=== PATIENT | female | born 1975 | race Caucasian/White ===

== ENCOUNTER 2017-11-21 12:13 | Inpatient (IN) | payer SELFPAY ==
--- NOTE | 2017-11-21 12:36 | ED Physician Chart ---
ED Chief Complaint/HPI - Patient Information Date Seen:: 11/21/17 Time Seen:: 12:29 Chief Complaint:: Right flank pain History of Present Illness:: 42 yo female tripped and had a ground level fall 10 days ago. She had left periorbital ecchymosis gradually healing and a healed laceration on the chin. Last night, the patient had a sudden onset of right mid back and flank pain with nausea, no vomiting. No urinary burning sensation or frequency. She called 911 and was found to have BP 85/47, HR 111. NS 1L bolus was given. Patient was brought to ER and the pain 05/06. BP 108/74, HR 102. Allergies:: Allergies Allergy/AdvReac Type Severity Reaction Status Date / Time No Known Allergies Allergy Verified 11/21/17 12:26 ED Review of Systems - Review of Systems General/Constitutional: No fever, Chills Skin: Bruising Head: No headache Eyes: No pain ENT: No nasal drainage Neck: No neck pain Cardio Vascular: No chest pain Pulmonary: SOB GI: Pain G/U: No dysuria Neurological: No focal symptoms ED Past Medical History - Past Medical History Past Medical History: No significant medical hx Social History: Non Smoker, Alcohol, No Drug Use Surgical History: (x 1), other (gastric bypass) Family Medical History - Family Member Mother History Unknown: Yes ED Physical Exam - Physical Examination General/Constitutional: Awake Eyes: PERRL Other Skin comments:: ecchymosis left periorbital area Neck: No nuchal rigidity Respiratory: Clear to Auscultation Cardio Vascular: RRR, No murmur, gallop, rubs, NL S1 S2 Other GI comments:: RLQ and right flank tenderness Other comments:: Right CVA percussion tenderness Extremities: normal strength in all extremities Neuro/Psych: No focal deficits ED Labs/Radiology/EKG Results - Radiology Results Results: CT abdomen/pelvis: ascending and proximal transverse colon wall thickening, suggesting colitis ED Assessment - Assessment General Assessment: Colitis Leukocytosis Hyponatremia Normocytic anemia Abnormal LFT Elevated lipase Assessment/Comments:: CBC, CMP, UA CT abdomen Morphine Rocephin Flagyl NS 1L IV bolus Admit to med surg for further evaluation and management ED Septic Shock - . Is Septic Shock (SBP<90, OR Lactate>4 mmol\L) present?: No ED Reassessment (Disposition) - Reassessment Reassessment Condition:: Improved - Patient Disposition Discharge/Transfer:: Acute Care w/in this hosp Admitting Medical Physician:: Nasim Bunn ED Discharge Plan - Patient Disposition Admit/Discharge/Transfer: Acute Care w/in this hosp Condition at Disposition: Stable
[2017-11-21] MEDS ORDERED: Morphine Sulfate 2 mg/mL 1mL Syr IV STA ×2 (12:44→15:58)
[2017-11-21] MEDS ORDERED: Morphine Sulfate 4 mg/mL 1mL Syr ONE ×2 (12:47→16:13)
[2017-11-21 13:02] LABS: RED CELL DISTRIBUTION WIDTH 17.2 % (11.5-20.0)
[2017-11-21 13:05] LABS: HEMATOCRIT 30.4 % (41.0-60); HEMOGLOBIN 10.5 gm/dL (12-16); MEAN CELL VOLUME 99.8 fl (81-100); MEAN CORPUSCULAR HEMOGLOBIN 34.4 pg (27.0-31.0); MEAN CORPUSCULAR HGB CONC 34.5 pg (28.0-36.0); MEAN PLATELET VOLUME 7.2 fl; PLATELET COUNT 200 Th/cmm (150-400); RED BLOOD COUNT 3.04 Mil/cmm (3.80-5.10)
[2017-11-21 13:08] LABS: MANUAL DIFF REQUIRED? YES
[2017-11-21 13:19] LABS: BAND NEUTROPHILE 4 % (0-10); INR 0.99 (0.5-1.4); LYMPHOCYTE 10 % (20-50); MONOCYTE 3 % (2-10); NEUTROPHILS 83 % (40-80); PROTHROMBIN TIME (TEST) 10.3 SECONDS (9.5-11.5); TOTAL CELLS COUNTED 100
[2017-11-21 13:20] LABS: URINE MICROSCOPIC INDICATED? YES; URINE SOURCE RANDOM
[2017-11-21 13:21] LABS: ALB/GLOB RATIO 1.5 (1.0-1.8); ALBUMIN 4.1 gm/dL (3.7-5.3); ALKALINE PHOSPHATASE 119 U/L (34-104); ANION GAP 33.1 (7.0-16.0); BILIRUBIN,TOTAL 1.5 mg/dL (0.3-1.0); BUN - UREA NITROGEN 12 mg/dL (7-25); CALCIUM SERUM 7.8 mg/dL (8.6-10.3); CHLORIDE 90 mEq/L (98-107); CREATININE - SERUM 0.8 mg/dL (0.6-1.2); GFR AFRICAN-AMERICAN > 60.0 ml/min (>90); GFR NON AFRICAN-AMERICAN > 60.0 ml/min; GLUCOSE 123 mg/dL (70-105); LIPASE 197 U/L (11-82); POTASSIUM SERUM 4.5 mEq/L (3.5-5.1); SGOT 36 U/L (13-39); SGPT/ALT 16 U/L (7-52); SODIUM SERUM 122 mEq/L (136-145); TOTAL PROTEIN,SERUM 6.9 gm/dL (6.0-8.3)
[2017-11-21 13:22] LABS: URINE BILIRUBIN NEGATIVE (NEGATIVE); URINE BLOOD SMALL (NEGATIVE); URINE GLUCOSE (UA) NEGATIVE (NEGATIVE); URINE KETONE >=80 mg/dL (NEGATIVE); URINE LEUKOCYTE ESTERASE NEGATIVE (NEGATIVE); URINE NITRATE NEGATIVE (NEGATIVE); URINE PH 5.5 (4.6 - 8.0); URINE PROTEIN 100 mg/dL (NEGATIVE); URINE UROBILINOGEN 0.2 E.U./dL (0.2 - 1.0)
[2017-11-21 13:25] LABS: CARBON DIOXIDE 3.4 mEq/L (21.0-31.0)
[2017-11-21 13:26] LABS: URINE CLARITY HAZY (CLEAR); URINE COLOR YELLOW
[2017-11-21] MEDS ORDERED: cefTRIAXone 1 GM in Sodium Chloride 0.9% 50 ML IV ONE (13:29)
[2017-11-21 13:30] LABS: URINE BACTERIA 1+ /hpf (NONE SEEN); URINE EPITHELIAL CELLS MODERATE /lpf (FEW)
[2017-11-21] MEDS ORDERED: metroNIDAZOLE 500mg/NS 100mL 500 MG/100 ML BAG IV ONE ×2 (13:30→13:48)
--- NOTE | 2017-11-21 14:16 | Diagnostic Imaging Report ---
CT scan abdomen and pelvis without intravenous contrast HISTORY: Pain Total DLP equals 452 CTDI equals 8.9 Axial sections were obtained from the xiphoid process down to the pubic symphysis. The liver exhibits a homogeneous parenchyma. No focal lesions. The spleen appears normal. Findings consistent with changes of gastric bypass surgery noted. Surgical clips are seen in the morena hepatis region consistent with a prior cholecystectomy. No focal renal lesions. There appears to be wall thickening involving the ascending colon and proximal transverse colon. Inflammatory change (colitis) cannot be excluded. Clinical correlation is needed. No significant bowel dilatation is seen. Surgical changes noted in the left abdominal area. The exam of the pelvis demonstrates preservation of normal fat planes. No abnormal soft tissue masses or abnormal fluid collections. IMPRESSION: 1. Findings suggesting wall thickening about the ascending and proximal transverse colon. Inflammatory change (colitis) cannot be excluded. Clinical correlation is needed 2. Surgical changes as noted above
[2017-11-21] MEDS ORDERED: Sodium Chloride 0.9% 1,000 ML IV ONE (15:12)
[2017-11-21] MEDS ORDERED: Morphine Sulfate 2 mg/mL 1mL Syr IVP PRN ×2 (15:42→15:47)
[2017-11-21] MEDS ORDERED: D5-0.45NS 1,000 ML IV SCH (15:45)
[2017-11-21] MEDS ORDERED: Morphine Sulfate 4 mg/mL 1mL Syr IVP PRN (17:08)
[2017-11-21] MEDS ORDERED: Ampicillin Sodium/Sulbactam 3 GM in Sodium Chloride 0.9% 100 ML IV SCH (18:00)
[2017-11-21] MEDS: D5-0.45NS 1,000 ML IV SCH (18:10)
[2017-11-21] MEDS: Ampicillin Sodium/Sulbactam 3 GM in Sodium Chloride 0.9% 100 ML IV SCH ×2 (18:10→23:28)
[2017-11-21 20:19] VITALS: BP 138/92
--- NOTE | 2017-11-21 20:20 | General Progress Note ---
Subjective - Review of Systems Service Date: 11/21/17 Events since last encounter: admits to history of alcohol intake tripped and fell a week ago, claims back pain radiating to right flank and abdomen CT scan - inflamed colon transverse and ceum with stools Plan MRI of spine Objective - Results Result Diagrams: 11/21/17 12:55 11/21/17 12:55 Recent Labs: Laboratory Last Values WBC 12.0 Th/cmm (4.8-10.8) H 11/21/17 12:55 RBC 3.04 Mil/cmm (3.80-5.10) L 11/21/17 12:55 Hgb 10.5 gm/dL (12-16) L 11/21/17 12:55 Hct 30.4 % (41.0-60) L 11/21/17 12:55 MCV 99.8 fl (81-100) 11/21/17 12:55 MCH 34.4 pg (27.0-31.0) H 11/21/17 12:55 MCHC Differential 34.5 pg (28.0-36.0) 11/21/17 12:55 RDW 17.2 % (11.5-20.0) 11/21/17 12:55 Plt Count 200 Th/cmm (150-400) 11/21/17 12:55 MPV 7.2 fl 11/21/17 12:55 Band Neutrophils % 4 % (0-10) 11/21/17 12:55 Neutrophils (Manual) 83 % (40-80) H 11/21/17 12:55 Lymphocytes 10 % (20-50) L 11/21/17 12:55 Monocytes 3 % (2-10) 11/21/17 12:55 PT 10.3 SECONDS (9.5-11.5) 11/21/17 12:55 INR 0.99 (0.5-1.4) 11/21/17 12:55 PTT (Actin FS) 28.3 SECONDS (26.0-38.0) 11/21/17 12:55 Sodium 122 mEq/L (136-145) L 11/21/17 12:55 Potassium 4.5 mEq/L (3.5-5.1) 11/21/17 12:55 Chloride 90 mEq/L (98-107) L 11/21/17 12:55 Carbon Dioxide 3.4 mEq/L (21.0-31.0) L* 11/21/17 12:55 Anion Gap 33.1 (7.0-16.0) H 11/21/17 12:55 BUN 12 mg/dL (7-25) 11/21/17 12:55 Creatinine 0.8 mg/dL (0.6-1.2) 11/21/17 12:55 Est GFR ( Amer) > 60.0 ml/min (>90) 11/21/17 12:55 Est GFR (Non-Af Amer) > 60.0 ml/min 11/21/17 12:55 BUN/Creatinine Ratio 15.0 11/21/17 12:55 Glucose 123 mg/dL (70-105) H 11/21/17 12:55 Whole Bld Lactic Acid 1.68 mmol/L (0.60-1.99) 11/21/17 15:00 Calcium 7.8 mg/dL (8.6-10.3) L 11/21/17 12:55 Total Bilirubin 1.5 mg/dL (0.3-1.0) H 11/21/17 12:55 AST 36 U/L (13-39) 11/21/17 12:55 ALT 16 U/L (7-52) 11/21/17 12:55 Alkaline Phosphatase 119 U/L (34-104) H 11/21/17 12:55 Troponin I < 0.01 ng/mL (0.01-0.05) L 11/21/17 12:55 B-Natriuretic Peptide 54.2 pg/mL (5.0-100.0) 11/21/17 12:55 Total Protein 6.9 gm/dL (6.0-8.3) 11/21/17 12:55 Albumin 4.1 gm/dL (3.7-5.3) 11/21/17 12:55 Globulin 2.8 gm/dL 11/21/17 12:55 Albumin/Globulin Ratio 1.5 (1.0-1.8) 11/21/17 12:55 Lipase 197 U/L (11-82) H 11/21/17 12:55 Urine Source RANDOM 11/21/17 13:00 Urine Color YELLOW 11/21/17 13:00 Urine Clarity HAZY (CLEAR) 11/21/17 13:00 Urine pH 5.5 (4.6 - 8.0) 11/21/17 13:00 Ur Specific [place] >= 1.030 (1.005-1.030) 11/21/17 13:00 Urine Protein 100 mg/dL (NEGATIVE) H 11/21/17 13:00 Urine Glucose (UA) NEGATIVE mg/dL (NEGATIVE) 11/21/17 13:00 Urine Ketones >=80 mg/dL (NEGATIVE) H 11/21/17 13:00 Urine Blood SMALL (NEGATIVE) H 11/21/17 13:00 Urine Nitrate NEGATIVE (NEGATIVE) 11/21/17 13:00 Urine Bilirubin NEGATIVE (NEGATIVE) 11/21/17 13:00 Urine Urobilinogen 0.2 E.U./dL (0.2 - 1.0) 11/21/17 13:00 Ur Leukocyte Esterase NEGATIVE (NEGATIVE) 11/21/17 13:00 Urine RBC 5-10 /hpf (0-5) H 11/21/17 13:00 Urine WBC 2-5 /hpf (0-5) 11/21/17 13:00 Ur Epithelial Cells MODERATE /lpf (FEW) 11/21/17 13:00 Urine Bacteria 1+ /hpf (NONE SEEN) H 11/21/17 13:00 Coarse Granular Casts 2-5 /lpf (NONE SEEN) H 11/21/17 13:00 Urine Test NEGATIVE 11/21/17 12:57 - Physical Exam Vitals and I&O: Vital Signs Temp 98.6 F 11/21/17 19:54 Pulse 109 11/21/17 19:54 Resp 19 11/21/17 19:54 BP 117/74 11/21/17 19:54 Pulse Ox 100 11/21/17 19:54 Intake & Output 11/21/17 11/21/17 11/22/17 06:59 18:59 06:59 Intake Total 0 Balance 0 Weight (lbs) 56.699 kg Intake: Oral 0 Other: # Voids 1 Weight Source Bedscale Active Medications: Current Medications Dextrose/Sodium Chloride (D5-0.45ns) 1,000 mls @ 100 mls/hr IV .Q10H PARRISH Stop: 01/20/18 15:44 Last Admin: 11/21/17 18:10 Dose: 100 mls/hr Ampicillin Sodium/Sulbactam (Sodium 3 gm/ Sodium Chloride) 100 mls @ 100 mls/ hr IV Q6HR PARRISH Stop: 01/20/18 17:59 Last Admin: 11/21/17 18:10 Dose: 100 mls/hr Influenza Virus Vaccine (Fluarix) 0.5 ml IM .ONCE ONE Stop: 11/22/17 09:01 Morphine Sulfate (Morphine) 1 mg IVP Q4HR PRN PRN Reason: Abdominal Pain Stop: 01/20/18 15:41 Morphine Sulfate (Morphine) 2 mg IVP Q4HR PRN PRN Reason: Abdominal Pain Stop: 01/20/18 15:46
[2017-11-21] MEDS: Morphine Sulfate 4 mg/mL 1mL Syr IVP PRN (20:52)
[2017-11-22] MEDS: Morphine Sulfate 4 mg/mL 1mL Syr IVP PRN ×5 (00:57→21:53)
[2017-11-22] MEDS: Ampicillin Sodium/Sulbactam 3 GM in Sodium Chloride 0.9% 100 ML IV SCH ×4 (05:09→23:29)
[2017-11-22] MEDS: D5-0.45NS 1,000 ML IV SCH ×2 (07:01→17:20)
--- NOTE | 2017-11-22 07:38 | General Progress Note ---
Subjective - Review of Systems Service Date: 11/22/17 Events since last encounter: abnormal LFT - US ordered MRI spine awaited Objective - Results Result Diagrams: 11/21/17 12:55 11/21/17 12:55 Recent Labs: Laboratory Last Values WBC 12.0 Th/cmm (4.8-10.8) H 11/21/17 12:55 RBC 3.04 Mil/cmm (3.80-5.10) L 11/21/17 12:55 Hgb 10.5 gm/dL (12-16) L 11/21/17 12:55 Hct 30.4 % (41.0-60) L 11/21/17 12:55 MCV 99.8 fl (81-100) 11/21/17 12:55 MCH 34.4 pg (27.0-31.0) H 11/21/17 12:55 MCHC Differential 34.5 pg (28.0-36.0) 11/21/17 12:55 RDW 17.2 % (11.5-20.0) 11/21/17 12:55 Plt Count 200 Th/cmm (150-400) 11/21/17 12:55 MPV 7.2 fl 11/21/17 12:55 Band Neutrophils % 4 % (0-10) 11/21/17 12:55 Neutrophils (Manual) 83 % (40-80) H 11/21/17 12:55 Lymphocytes 10 % (20-50) L 11/21/17 12:55 Monocytes 3 % (2-10) 11/21/17 12:55 PT 10.3 SECONDS (9.5-11.5) 11/21/17 12:55 INR 0.99 (0.5-1.4) 11/21/17 12:55 PTT (Actin FS) 28.3 SECONDS (26.0-38.0) 11/21/17 12:55 Sodium 122 mEq/L (136-145) L 11/21/17 12:55 Potassium 4.5 mEq/L (3.5-5.1) 11/21/17 12:55 Chloride 90 mEq/L (98-107) L 11/21/17 12:55 Carbon Dioxide 3.4 mEq/L (21.0-31.0) L* 11/21/17 12:55 Anion Gap 33.1 (7.0-16.0) H 11/21/17 12:55 BUN 12 mg/dL (7-25) 11/21/17 12:55 Creatinine 0.8 mg/dL (0.6-1.2) 11/21/17 12:55 Est GFR ( Amer) > 60.0 ml/min (>90) 11/21/17 12:55 Est GFR (Non-Af Amer) > 60.0 ml/min 11/21/17 12:55 BUN/Creatinine Ratio 15.0 11/21/17 12:55 Glucose 123 mg/dL (70-105) H 11/21/17 12:55 Whole Bld Lactic Acid 1.68 mmol/L (0.60-1.99) 11/21/17 15:00 Calcium 7.8 mg/dL (8.6-10.3) L 11/21/17 12:55 Total Bilirubin 1.5 mg/dL (0.3-1.0) H 11/21/17 12:55 AST 36 U/L (13-39) 11/21/17 12:55 ALT 16 U/L (7-52) 11/21/17 12:55 Alkaline Phosphatase 119 U/L (34-104) H 11/21/17 12:55 Troponin I < 0.01 ng/mL (0.01-0.05) L 11/21/17 12:55 B-Natriuretic Peptide 54.2 pg/mL (5.0-100.0) 11/21/17 12:55 Total Protein 6.9 gm/dL (6.0-8.3) 11/21/17 12:55 Albumin 4.1 gm/dL (3.7-5.3) 11/21/17 12:55 Globulin 2.8 gm/dL 11/21/17 12:55 Albumin/Globulin Ratio 1.5 (1.0-1.8) 11/21/17 12:55 Lipase 197 U/L (11-82) H 11/21/17 12:55 Urine Source RANDOM 11/21/17 13:00 Urine Color YELLOW 11/21/17 13:00 Urine Clarity HAZY (CLEAR) 11/21/17 13:00 Urine pH 5.5 (4.6 - 8.0) 11/21/17 13:00 Ur Specific [place] >= 1.030 (1.005-1.030) 11/21/17 13:00 Urine Protein 100 mg/dL (NEGATIVE) H 11/21/17 13:00 Urine Glucose (UA) NEGATIVE mg/dL (NEGATIVE) 11/21/17 13:00 Urine Ketones >=80 mg/dL (NEGATIVE) H 11/21/17 13:00 Urine Blood SMALL (NEGATIVE) H 11/21/17 13:00 Urine Nitrate NEGATIVE (NEGATIVE) 11/21/17 13:00 Urine Bilirubin NEGATIVE (NEGATIVE) 11/21/17 13:00 Urine Urobilinogen 0.2 E.U./dL (0.2 - 1.0) 11/21/17 13:00 Ur Leukocyte Esterase NEGATIVE (NEGATIVE) 11/21/17 13:00 Urine RBC 5-10 /hpf (0-5) H 11/21/17 13:00 Urine WBC 2-5 /hpf (0-5) 11/21/17 13:00 Ur Epithelial Cells MODERATE /lpf (FEW) 11/21/17 13:00 Urine Bacteria 1+ /hpf (NONE SEEN) H 11/21/17 13:00 Coarse Granular Casts 2-5 /lpf (NONE SEEN) H 11/21/17 13:00 Urine Test NEGATIVE 11/21/17 12:57 - Physical Exam Vitals and I&O: Vital Signs Temp 98 F 11/22/17 04:00 Pulse 97 11/22/17 04:00 Resp 18 11/22/17 04:00 BP 114/74 11/22/17 04:00 Pulse Ox 98 11/22/17 04:00 Intake & Output 11/21/17 11/22/17 11/22/17 18:59 06:59 18:59 Intake Total 0 1300 Balance 0 1300 Weight (lbs) 56.699 kg 54.567 kg Intake: Intake, IV Amount 1300 Ampicillin Sodium/ 300 Sulbactam 3 gm In Sodium Chloride 0.9% 100 ml @ 100 mls/hr IV Q6HR PARRISH Rx #:[id number] D5-0.45NS 1,000 ml @ 100 1000 mls/hr IV .Q10H PARRISH Rx#: [id number] Oral 0 Other: # Voids 1 Weight Source Bedscale Bedscale Active Medications: Current Medications Dextrose/Sodium Chloride (D5-0.45ns) 1,000 mls @ 100 mls/hr IV .Q10H PARRISH Stop: 01/20/18 15:44 Last Admin: 11/22/17 07:01 Dose: 100 mls/hr Ampicillin Sodium/Sulbactam (Sodium 3 gm/ Sodium Chloride) 100 mls @ 100 mls/ hr IV Q6HR PARRISH Stop: 01/20/18 17:59 Last Infusion: 11/22/17 06:10 Dose: Infused Influenza Virus Vaccine (Fluarix) 0.5 ml IM .ONCE ONE Stop: 11/22/17 09:01 Morphine Sulfate (Morphine) 1 mg IVP Q4HR PRN PRN Reason: Abdominal Pain Stop: 01/20/18 15:41 Morphine Sulfate (Morphine) 2 mg IVP Q4HR PRN PRN Reason: Abdominal Pain Stop: 01/20/18 15:46 Last Admin: 11/22/17 05:21 Dose: 2 mg
[2017-11-22] MEDS ORDERED: Influenza Vaccine 0.5 mL Syr IM ONE (09:00)
[2017-11-22] MEDS: Pantoprazole 40 mg EC Tab PO SCH (09:35)
[2017-11-22 10:38] LABS: AMPHETAMINE URINE NEGATIVE (NEGATIVE); BARBITURATES URINE NEGATIVE (NEGATIVE); BENZODIAZEPINES QUAL URINE NEGATIVE (NEGATIVE); CANNABINOID THC NEGATIVE (NEGATIVE); COCAINE METABOLITE QUAL URINE NEGATIVE (NEGATIVE); METHADONE URINE NEGATIVE (NEGATIVE); METHAMPHETAMINES QUAL URINE NEGATIVE (NEGATIVE); OPIATES (MORPHINE) QUAL. URINE POSITIVE (NEGATIVE); PHENCYCLIDINE (PCP) URINE NEGATIVE (NEGATIVE); TRICYCLICS (TCA) QUAL. URINE NEGATIVE (NEGATIVE)
--- NOTE | 2017-11-22 11:05 | Consultation ---
DATE OF CONSULTATION: 11/22/2017 GASTROENTEROLOGY CONSULTATION REQUESTING PHYSICIAN: Nasim Bunn M.D. REASON FOR CONSULTATION: Right flank pain. HISTORY OF PRESENT ILLNESS: A 42-year-old female with alcohol dependence, currently active with last drink about 2 days ago. She had a fall and had a laceration to her chin about 1 week ago. For the last couple of days, she has been having right upper quadrant and right flank pain. She cannot recall whether she fell on to her ribs or not. She denied nausea, vomiting, diarrhea or constipation. There has been no change in bowel habits or overt GI bleeding. She had an upper endoscopy done at [facility] a year ago that was reportedly negative. A CT scan of the abdomen and pelvis done here without contrast showed wall thickening of the ascending and proximal transverse colon; colitis cannot be ruled out. There were also some gastric bypass surgery changes noted in the epigastric area as well as previous cholecystectomy change. PAST MEDICAL HISTORY: As above; previous gastric bypass; previous lap talha. MEDICATIONS: Here are Unasyn, morphine, IV fluids. ALLERGIES: None. SOCIAL HISTORY: Positive alcohol, no tobacco, no drugs. FAMILY HISTORY: Noncontributory. REVIEW OF SYSTEMS: Negative. PHYSICAL EXAMINATION: VITAL SIGNS: Temperature of 98.0, blood pressure 114/74, pulse is 97, respirations 18, O2 sat 98%. GENERAL: The patient is well-developed, well-nourished female who is somewhat disheveled, in no acute distress. HEENT: Left infraorbital ecchymosis. Chin laceration. CARDIOVASCULAR: Regular rate and rhythm. ABDOMEN: Soft, mild right flank tenderness to palpation over the costal margin. There is no epigastric or abdominal tenderness to palpation. EXTREMITIES: No clubbing, cyanosis or edema. RECTAL: Deferred. LABORATORY DATA AND IMAGING: WBC 12, hemoglobin 10.5, and platelet count is 200. INR 0.99. Creatinine is normal. Bilirubin 1.5, AST 36, ALT 16, alkaline phosphatase 119. Troponin negative, albumin is 4.1. Urinalysis shows ketones and protein, small blood, bacteria. CT of the abdomen and pelvis done without contrast shows wall thickening of the ascending and proximal transverse colon with the postsurgical changes. IMPRESSION: 1. Right upper quadrant and right flank pain, rule out musculoskeletal or rib fracture or contusion, perhaps from a trauma. There also may be some back injury; there is also a possibility of colitis, perhaps from infectious and less likely an ischemic etiology; less likely is the possibility of an occult neoplasm. The patient has had a previous cholecystectomy. She also had a previous gastric bypass. Also, possible or less likely is the possibility of peptic ulcer disease, gastritis or duodenitis. 2. Ongoing alcohol abuse. 3. Alcoholic liver disease with mildly abnormal liver enzymes. 4. Leukocytosis. 5. Mild anemia. RECOMMENDATIONS: 1. Check a rib series x-ray. 2. Check abdominal ultrasound. 3. Check stool studies if diarrhea. 4. Antibiotics. 5. Diet as tolerated. 6. Alcohol rehabilitation and cessation stressed. 7. If symptoms persist, then consider colonoscopy and/or upper endoscopy. 8. Protonix. Thank you, Dr. Nasim Bunn for involving us in the care of your patient. If you have any further questions, please call us. JOB# [id number] CARSON
--- NOTE | 2017-11-22 16:48 | History & Physical ---
ADMIT DATE: 11/22/2017 PATIENT IDENTIFICATION: A 42-year-old female. CHIEF COMPLAINT: Back pain and abdominal pain. HISTORY OF PRESENT ILLNESS: A 42-year-old female with a history of alcoholism, presented to Emergency Room for back pain and right flank pain where the patient was evaluated in the Emergency Room, the patient did have abnormal CT scan of the abdomen and pelvis. The patient has been admitted for further treatment. PAST MEDICAL HISTORY: None. MEDICATIONS AT HOME: None. ALLERGIES: None. SOCIAL HISTORY: She lives by herself. The patient has a history of smoking. The patient denies any smoking cigarette, but drinks alcohol. Denies any street drug use. FAMILY MEDICAL HISTORY: Remarkable for hypertension and diabetes. REVIEW OF SYSTEMS: The patient denies any chest pain, shortness of breath, palpitation, dizziness, nausea, vomiting, diarrhea, dysuria, hematuria, hematochezia, or melena. No seizure or syncopal episode. PHYSICAL EXAMINATION: GENERAL: Alert, awake, oriented, lying in the bed without any acute distress. VITAL SIGNS: Temperature 98.6, pulse is 74, respiratory rate 18, blood pressure 108/74. HEENT: Normocephalic, atraumatic. Extraocular muscles are intact. Tongue was pink and coated. Poor dentition noted. No oral lesion, no exudate. No sinus tenderness. NECK: Supple, no JVD, no hepatojugular reflex. No lymphadenopathy, thyromegaly or carotid bruit. HEART: Both heart sounds are regular. No S3, no S4, no murmur. CHEST AND LUNGS: Equal in expansion, no wheezing, no crackles. ABDOMEN: Soft. No guarding, no rigidity. Right upper quadrant tenderness noted. Bowel sounds are present. No palpable mass. EXTREMITIES: No edema, no cyanosis. NEUROLOGIC: Nonfocal. AVAILABLE DIAGNOSTIC DATA: In the Emergency Room has been reviewed. CLINICAL IMPRESSION: 1. Right upper quadrant and right flank pain with abnormal CT scan of abdomen and pelvis, etiology needs to determine. 2. Alcohol abuse. 3. Fatty liver secondary to alcoholism. 4. Leukocytosis. PLAN: 1. Admit this patient to Med/Surg floor. 2. IV antibiotic. 3. Clear liquid diet. 4. General nursing care. 5. Gastrointestinal consult. 6. General Surgery consultation. 7. Symptoms management. 8. Medication management. 9. Follow lab. 10. Follow consult recommendation. 11. Care plan reviewed and discussed with staff. JOB# [id number]
[2017-11-23] MEDS: Ampicillin Sodium/Sulbactam 3 GM in Sodium Chloride 0.9% 100 ML IV SCH ×4 (05:13→23:01)
[2017-11-23] MEDS: Morphine Sulfate 4 mg/mL 1mL Syr IVP PRN ×3 (05:14→21:14)
[2017-11-23] MEDS: D5-0.45NS 1,000 ML IV SCH ×2 (05:14→09:13)
[2017-11-23 05:21] LABS: % BASOPHILS 0.9 % (0.0-2.0); % EOSINOPHILS 2.9 % (0.0-5.0); % LYMPHOCYTES 19.1 % (20.0-50.0); % MONOCYTES 4.7 % (2.0-10.0); % NEUTROPHILS 72.4 % (40.0-80.0); EOSINOPHILE ABSOLUTE 0.1 Th/cmm (0.1-0.4); HEMATOCRIT 27.3 % (41.0-60); HEMOGLOBIN 9.3 gm/dL (12-16); LYMPHOCYTE ABSOLUTE 0.9 Th/cmm (1.5-3.0); MEAN CELL VOLUME 99.2 fl (81-100); MEAN CORPUSCULAR HEMOGLOBIN 33.8 pg (27.0-31.0); MEAN CORPUSCULAR HGB CONC 34.1 pg (28.0-36.0); MEAN PLATELET VOLUME 7.4 fl; MONOCYTE ABSOLUTE 0.2 Th/cmm (0.3-1.0); NEUTROPHILE ABSOLUTE 3.4 Th/cmm (1.8-8.0); PLATELET COUNT 111 Th/cmm (150-400); RED BLOOD COUNT 2.75 Mil/cmm (3.80-5.10); RED CELL DISTRIBUTION WIDTH 17.2 % (11.5-20.0); WHITE BLOOD COUNT 4.6 Th/cmm (4.8-10.8)
[2017-11-23 05:58] LABS: ALB/GLOB RATIO 1.4 (1.0-1.8); ALBUMIN 3.6 gm/dL (3.7-5.3); ALKALINE PHOSPHATASE 82 U/L (34-104); ANION GAP 10.2 (7.0-16.0); BILIRUBIN,TOTAL 0.8 mg/dL (0.3-1.0); CALCIUM SERUM 8.7 mg/dL (8.6-10.3); CARBON DIOXIDE 24.2 mEq/L (21.0-31.0); CHLORIDE 101 mEq/L (98-107); CREATININE - SERUM 0.5 mg/dL (0.6-1.2); GFR AFRICAN-AMERICAN > 60.0 ml/min (>90); GFR NON AFRICAN-AMERICAN > 60.0 ml/min; GLUCOSE 102 mg/dL (70-105); SGOT 33 U/L (13-39); SGPT/ALT 15 U/L (7-52); SODIUM SERUM 133 mEq/L (136-145); TOTAL PROTEIN,SERUM 6.2 gm/dL (6.0-8.3)
--- NOTE | 2017-11-23 06:01 | Consultation ---
DATE OF CONSULTATION: 11/21/2017 SURGICAL CONSULTATION REFERRING PHYSICIAN: ____ ER physician. REASON FOR CONSULTATION: Abdominal pain. Thank you for referring this patient to me. HISTORY OF PRESENT ILLNESS: This is a 42-year-old female who apparently tripped and fell over a week ago and sustained trauma to her face with ecchymosis under the left eye evident now. She developed abdominal pain more on the right side, mid spine, now radiating to the right flank, and on to the abdomen now. The patient admits to taking alcohol. She denies any other drug intake. LABORATORY STUDIES: On admission showed WBC to be slightly high at 12,000. Rest of the exam is essentially normal. Chemistry, CO2 3.4. Lactic acid high at 2.31. Lipase slightly elevated at 197, total bilirubin at 1.5, and alkaline phosphatase at 119. CT scan of the abdomen was done and this shows some thickening of the ascending colon and proximal transverse colon/the question of colitis. PHYSICAL EXAMINATION: Minimal tenderness. She claims that the pain in the back, radiates to the right hip, raising the question of disk disease. PLAN: We will order MRI and also ultrasound of the abdomen to rule out gallbladder stones JOB# [id number] CARSON
[2017-11-23 06:14] LABS: BUN - UREA NITROGEN < 2 mg/dL (7-25); POTASSIUM SERUM 2.4 mEq/L (3.5-5.1)
[2017-11-23] MEDS: KCL 20mEq/100mL Premix 20 MEQ/100 ML PIGGYBACK IV SCH ×3 (08:46→16:21)
[2017-11-23] MEDS: Pantoprazole 40 mg EC Tab PO SCH (08:47)
--- NOTE | 2017-11-23 09:41 | Diagnostic Imaging Report ---
Exam: Right rib cage HISTORY: Fracture Findings: Single frontal examination right rib cage demonstrate grossly no evidence of fracture dislocation or pneumothorax IMPRESSION normal limited examination of the right rib cage, on the single frontal view provided.
--- NOTE | 2017-11-23 09:42 | Diagnostic Imaging Report ---
Exam: Left rib cage HISTORY: Fracture. Findings: 2 views of left rib cage reviewed the study demonstrates no evidence of fracture dislocation or pneumothorax IMPRESSION: Limited normal examination left rib cage.
[2017-11-23] MEDS ORDERED: KCL 20mEq/100mL Premix Bag IV ONE (16:15)
[2017-11-23] MEDS ORDERED: Sodium Chloride 0.9% 500 ML IV ONE (16:33)
[2017-11-23] MEDS ORDERED: Mag Sulfate 2gm/50mL Premix 2 GM/50 ML BAG IV ONE ×2 (17:00→19:00)
[2017-11-23] MEDS ORDERED: Metoclopramide 5 mg/mL 2mL Vial IVP PRN (22:40)
--- NOTE | 2017-11-23 22:44 | Progress Notes ---
DATE: 11/23/2017 IDENTIFICATION: A 42-year-old female. CHIEF COMPLAINT: "I still have pain on my right side of the abdomen." The patient is also seen by surgeon as well as the manager [employer]. The patient has a low potassium, currently getting the potassium infusion. The patient currently denies any chest pain, abdominal pain, nausea, vomiting or any headache. PHYSICAL EXAMINATION: VITAL SIGNS: Temperature 98, pulse is 87, respiratory rate 18, blood pressure 133/94. HEENT: No facial asymmetry. NECK: Supple, no JVD. HEART: Regular. CHEST: Lung equal in expansion with expiratory wheezing. ABDOMEN: Soft. Diffuse tenderness in the right upper quadrant noted. Bowel sounds are present. EXTREMITIES: No edema. AVAILABLE DIAGNOSTIC DATA: White count of 4.6, hemoglobin 9.3, platelet of 111, potassium 2.4. Urine drug screen positive for opiates. Blood cultures are negative. CLINICAL IMPRESSION: 1. Abdominal pain with abnormal CT scan of the abdomen and pelvis. Clinical picture consistent with colitis. 2. Hypokalemia. 3. Mild thrombocytopenia, most likely secondary to medication related. PLAN: 1. Replace potassium. 2. IV antibiotic. 3. Await further workup, which was ordered by the trousseau consultant. 4. General nursing care. 5. Follow lab. 6. Follow consult recommendation. 7. Care plan reviewed and discussed with staff. JOB# [id number]
[2017-11-24] MEDS: Morphine Sulfate 4 mg/mL 1mL Syr IVP PRN (03:58)
[2017-11-24] MEDS: Ampicillin Sodium/Sulbactam 3 GM in Sodium Chloride 0.9% 100 ML IV SCH ×4 (05:29→23:58)
[2017-11-24 05:48] LABS: BASOPHILE ABSOLUTE 0.1 Th/cumm (0-0.2); EOSINOPHILE ABSOLUTE 0.1 Th/cmm (0.1-0.4); MEAN PLATELET VOLUME 7.4 fl; MONOCYTE ABSOLUTE 0.3 Th/cmm (0.3-1.0)
[2017-11-24 05:56] LABS: % BASOPHILS 1.6 % (0.0-2.0); % LYMPHOCYTES 42.9 % (20.0-50.0); % MONOCYTES 7.6 % (2.0-10.0); % NEUTROPHILS 43.9 % (40.0-80.0); HEMATOCRIT 23.5 % (41.0-60); INR 0.9 (0.5-1.4); LYMPHOCYTE ABSOLUTE 1.4 Th/cmm (1.5-3.0); MEAN CELL VOLUME 99.4 fl (81-100); MEAN CORPUSCULAR HEMOGLOBIN 33.7 pg (27.0-31.0); MEAN CORPUSCULAR HGB CONC 33.9 pg (28.0-36.0); NEUTROPHILE ABSOLUTE 1.4 Th/cmm (1.8-8.0); PLATELET COUNT 120 Th/cmm (150-400); PROTHROMBIN TIME (TEST) 9.3 SECONDS (9.5-11.5); RED BLOOD COUNT 2.36 Mil/cmm (3.80-5.10); RED CELL DISTRIBUTION WIDTH 16.5 % (11.5-20.0)
[2017-11-24 06:01] LABS: WHITE BLOOD COUNT 3.3 Th/cmm (4.8-10.8)
[2017-11-24 06:03] LABS: ALB/GLOB RATIO 1.5 (1.0-1.8); ALBUMIN 3.2 gm/dL (3.7-5.3); ALKALINE PHOSPHATASE 71 U/L (34-104); ANION GAP 10.7 (7.0-16.0); BILIRUBIN,TOTAL 1.1 mg/dL (0.3-1.0); CALCIUM SERUM 8.6 mg/dL (8.6-10.3); CARBON DIOXIDE 25.6 mEq/L (21.0-31.0); CHLORIDE 100 mEq/L (98-107); CREATININE - SERUM 0.4 mg/dL (0.6-1.2); GFR AFRICAN-AMERICAN > 60.0 ml/min (>90); GFR NON AFRICAN-AMERICAN > 60.0 ml/min; GLUCOSE 103 mg/dL (70-105); MAGNESIUM 2.8 mg/dL (1.9-2.7); SGOT 64 U/L (13-39); SGPT/ALT 20 U/L (7-52); SODIUM SERUM 134 mEq/L (136-145); TOTAL PROTEIN,SERUM 5.4 gm/dL (6.0-8.3)
[2017-11-24 06:13] LABS: BUN - UREA NITROGEN < 2 mg/dL (7-25); POTASSIUM SERUM 2.3 mEq/L (3.5-5.1)
[2017-11-24] MEDS ORDERED: POTASSIUM CHLORIDE IV SCH (08:45)
[2017-11-24] MEDS ORDERED: SODIUM CHLORIDE 0.9% IV SCH (08:45)
[2017-11-24] MEDS: KCL 20mEq/100mL Premix 20 MEQ/100 ML PIGGYBACK IV SCH ×3 (09:54→16:56)
[2017-11-24] MEDS: Pantoprazole 40 mg EC Tab PO SCH (09:55)
--- NOTE | 2017-11-24 10:45 | GI Progress Note ---
Subjective - Review of Systems Service Date: 11/24/17 Subjective: PATIENT SCHEDULED FOR COLONOSCOPY BUT K2.4, AND NOT REPLETED. WILL RESCHEDULE PROCEDURE TO TOMORROW. Objective - Results Result Diagrams: 11/24/17 05:01 11/24/17 10:30 Recent Labs: Laboratory Last Values WBC 3.3 Th/cmm (4.8-10.8) L 11/24/17 05:01 RBC 2.36 Mil/cmm (3.80-5.10) L 11/24/17 05:01 Hgb 8.0 gm/dL (12-16) L 11/24/17 05:01 Hct 23.5 % (41.0-60) L 11/24/17 05:01 MCV 99.4 fl (81-100) 11/24/17 05:01 MCH 33.7 pg (27.0-31.0) H 11/24/17 05:01 MCHC Differential 33.9 pg (28.0-36.0) 11/24/17 05:01 RDW 16.5 % (11.5-20.0) 11/24/17 05:01 Plt Count 120 Th/cmm (150-400) L 11/24/17 05:01 MPV 7.4 fl 11/24/17 05:01 Neutrophils % 43.9 % (40.0-80.0) 11/24/17 05:01 Band Neutrophils % 4 % (0-10) 11/21/17 12:55 Lymphocytes % 42.9 % (20.0-50.0) 11/24/17 05:01 Monocytes % 7.6 % (2.0-10.0) 11/24/17 05:01 Eosinophils % 4.0 % (0.0-5.0) 11/24/17 05:01 Basophils % 1.6 % (0.0-2.0) 11/24/17 05:01 Neutrophils (Manual) 83 % (40-80) H 11/21/17 12:55 Lymphocytes 10 % (20-50) L 11/21/17 12:55 Monocytes 3 % (2-10) 11/21/17 12:55 PT 9.3 SECONDS (9.5-11.5) L 11/24/17 05:01 INR 0.90 (0.5-1.4) 11/24/17 05:01 PTT (Actin FS) 28.3 SECONDS (26.0-38.0) 11/21/17 12:55 Sodium 134 mEq/L (136-145) L 11/24/17 05:01 Potassium 2.4 mEq/L (3.5-5.1) L* 11/24/17 10:30 Chloride 100 mEq/L (98-107) 11/24/17 05:01 Carbon Dioxide 25.6 mEq/L (21.0-31.0) 11/24/17 05:01 Anion Gap 10.7 (7.0-16.0) 11/24/17 05:01 BUN < 2 mg/dL (7-25) L 11/24/17 05:01 Creatinine 0.4 mg/dL (0.6-1.2) L 11/24/17 05:01 Est GFR ( Amer) > 60.0 ml/min (>90) 11/24/17 05:01 Est GFR (Non-Af Amer) > 60.0 ml/min 11/24/17 05:01 BUN/Creatinine Ratio 5.0 11/24/17 05:01 Glucose 103 mg/dL (70-105) 11/24/17 05:01 Whole Bld Lactic Acid 1.68 mmol/L (0.60-1.99) 11/21/17 15:00 Calcium 8.6 mg/dL (8.6-10.3) 11/24/17 05:01 Magnesium 2.8 mg/dL (1.9-2.7) H 11/24/17 05:01 Total Bilirubin 1.1 mg/dL (0.3-1.0) H 11/24/17 05:01 AST 64 U/L (13-39) H 11/24/17 05:01 ALT 20 U/L (7-52) 11/24/17 05:01 Alkaline Phosphatase 71 U/L (34-104) 11/24/17 05:01 Troponin I < 0.01 ng/mL (0.01-0.05) L 11/21/17 12:55 B-Natriuretic Peptide 54.2 pg/mL (5.0-100.0) 11/21/17 12:55 Total Protein 5.4 gm/dL (6.0-8.3) L 11/24/17 05:01 Albumin 3.2 gm/dL (3.7-5.3) L 11/24/17 05:01 Globulin 2.2 gm/dL 11/24/17 05:01 Albumin/Globulin Ratio 1.5 (1.0-1.8) 11/24/17 05:01 Lipase 197 U/L (11-82) H 11/21/17 12:55 Urine Source RANDOM 11/21/17 13:00 Urine Color YELLOW 11/21/17 13:00 Urine Clarity HAZY (CLEAR) 11/21/17 13:00 Urine pH 5.5 (4.6 - 8.0) 11/21/17 13:00 Ur Specific [place] >= 1.030 (1.005-1.030) 11/21/17 13:00 Urine Protein 100 mg/dL (NEGATIVE) H 11/21/17 13:00 Urine Glucose (UA) NEGATIVE mg/dL (NEGATIVE) 11/21/17 13:00 Urine Ketones >=80 mg/dL (NEGATIVE) H 11/21/17 13:00 Urine Blood SMALL (NEGATIVE) H 11/21/17 13:00 Urine Nitrate NEGATIVE (NEGATIVE) 11/21/17 13:00 Urine Bilirubin NEGATIVE (NEGATIVE) 11/21/17 13:00 Urine Urobilinogen 0.2 E.U./dL (0.2 - 1.0) 11/21/17 13:00 Ur Leukocyte Esterase NEGATIVE (NEGATIVE) 11/21/17 13:00 Urine RBC 5-10 /hpf (0-5) H 11/21/17 13:00 Urine WBC 2-5 /hpf (0-5) 11/21/17 13:00 Ur Epithelial Cells MODERATE /lpf (FEW) 11/21/17 13:00 Urine Bacteria 1+ /hpf (NONE SEEN) H 11/21/17 13:00 Coarse Granular Casts 2-5 /lpf (NONE SEEN) H 11/21/17 13:00 Urine Test NEGATIVE 11/21/17 12:57 Urine Opiates Screen POSITIVE (NEGATIVE) H 11/22/17 09:00 Urine Methadone Screen NEGATIVE (NEGATIVE) 11/22/17 09:00 Ur Barbiturates Screen NEGATIVE (NEGATIVE) 11/22/17 09:00 Ur Tricyclics Screen NEGATIVE (NEGATIVE) 11/22/17 09:00 Ur Phencyclidine Scrn NEGATIVE (NEGATIVE) 11/22/17 09:00 Amphetamines Screen NEGATIVE (NEGATIVE) 11/22/17 09:00 U Methamphetamines Scrn NEGATIVE (NEGATIVE) 11/22/17 09:00 U Benzodiazepines Scrn NEGATIVE (NEGATIVE) 11/22/17 09:00 U Cocaine Metab Screen NEGATIVE (NEGATIVE) 11/22/17 09:00 U Cannabinoids Screen NEGATIVE (NEGATIVE) 11/22/17 09:00 - Physical Exam Vitals and I&O: Vital Signs Temp 96.1 F 11/24/17 08:50 Pulse 88 11/24/17 08:50 Resp 17 11/24/17 08:50 BP 136/84 11/24/17 08:50 Pulse Ox 99 11/24/17 08:50 Intake & Output 11/23/17 11/24/17 11/24/17 18:59 06:59 18:59 Intake Total 898.333 200 Balance 898.333 200 Weight (lbs) 58.513 kg Intake: Intake, IV Amount 898.333 200 Ampicillin Sodium/ 200 200 Sulbactam 3 gm In Sodium Chloride 0.9% 100 ml @ 100 mls/hr IV Q6HR [facility] Rx #:[id number] D5-0.45NS 1,000 ml @ 100 398.333 mls/hr IV .Q10H [facility] Rx#: [id number] KCL 20mEq/100mL Premix 20 200 meq In 100 ml @ 50 mls/ hr IV Q2H [facility] Rx#: [id number] KCL 20mEq/100mL Premix 20 100 meq In 100 ml @ 50 mls/ hr IV X1 [facility] Rx#: [id number] Other: # Voids 2 # Bowel Movements 0 Stool Characteristics Liquid Liquid Weight Source Bedscale Active Medications: Current Medications Dextrose/Sodium Chloride (D5-0.45ns) 1,000 mls @ 100 mls/hr IV .Q10H [facility] Stop: 01/20/18 15:44 Last Admin: 11/23/17 09:13 Dose: 100 mls/hr Ampicillin Sodium/Sulbactam (Sodium 3 gm/ Sodium Chloride) 100 mls @ 100 mls/ hr IV Q6HR [facility] Stop: 01/20/18 17:59 Last Admin: 11/24/17 05:29 Dose: 100 mls/hr Potassium Chloride (Potassium Chloride) 20 meq in 100 mls @ 50 mls/hr IV Q2H [facility] Stop: 11/24/17 14:59 Last Admin: 11/24/17 09:54 Dose: 50 mls/hr Lorazepam (Ativan) 1 mg IVP Q4HR PRN; Protocol PRN Reason: Alcohol Withdrawal Stop: 01/23/18 09:38 Last Admin: 11/24/17 10:03 Dose: 1 mg Metoclopramide HCl (Reglan) 5 mg IVP Q4HR PRN PRN Reason: Nausea / Vomiting Stop: 11/24/17 22:40 Last Admin: 11/23/17 23:01 Dose: 5 mg Morphine Sulfate (Morphine) 1 mg IVP Q4HR PRN PRN Reason: Abdominal Pain Stop: 01/20/18 15:41 Morphine Sulfate (Morphine) 2 mg IVP Q4HR PRN PRN Reason: Abdominal Pain Stop: 01/20/18 15:46 Last Admin: 11/24/17 03:58 Dose: 2 mg Pantoprazole Sodium (Protonix) 40 mg PO DAILY [facility] Stop: 01/21/18 08:59 Last Admin: 11/24/17 09:55 Dose: Not Given General: Alert, No acute distress HEENT: Atraumatic Neck: Supple Cardiovascular: Regular rate Lungs: Clear to auscultation Abdomen: Bowel sounds, Soft, Tender (MILD R SIDED/RLQ) Assessment/Plan - Assessment Assessment: IMPRESSION: 1. RLQ/R FLANK PAIN. CT SHOWED AC/TC COLITIS. SOME DIARRHEA. 2. LEUKOCYTOSIS, BETTER - NOW MILD LEUKOPENIA. 3. ALCOHOL DEPENDENCE AND MILD CHRONIC LIVER DISEASE. 4. HAD EGD [address] YR AGO [address] [facility] REPORTEDLY NEG. RECS: 1. F/U STOOL STUDIES. 2. ABX AND PPI. 3. REPLETE K AND/OR MG. 4. COLONOSCOPY TOMORROW IF LYTES ACCEPTABLE.
--- NOTE | 2017-11-24 11:31 | Diagnostic Imaging Report ---
CT scan cervical spine HISTORY: Pain Total DLP equals 248 CTDI equals 13.9 Axial sections were obtained through the cervical spine. Additional sagittal and coronal reformatted images are provided. The exam demonstrates mild degenerative changes with small spur formation noted about the endplates of C5 and C6. No acute abnormalities. No fractures. Alignment is normal. Disc spaces are maintained. IMPRESSION: 1. No acute abnormalities 2. Mild degenerative changes C5-6
[2017-11-24] MEDS ORDERED: Potassium Chloride 20 mEq ER Tab PO ONE (16:01)
--- NOTE | 2017-11-24 19:15 | Progress Notes ---
DATE: 11/24/2017 SUBJECTIVE: The patient seen and examined. The patient is lying in the bed. The patient has no active bleeding, but comes in about pain on the right side of her abdomen. She did have a CT chest, which revealed colitis and rib x-rays were unremarkable. She is scheduled to have colonoscopy today. Her potassium remained low as well. Magnesium is 2.8 today according to patient, she felt like she is going under alcohol withdrawal. She is very shaky and cold. The patient currently denies any chest pain or palpitation. PHYSICAL EXAMINATION: VITAL SIGNS: Temperature 96.6, pulse 88, respiratory rate is 18, blood pressure 136/84. HEENT: No facial asymmetry. NECK: Supple, no JVD. HEART: Regular. CHEST AND LUNGS: Equal in expansion, no wheezing, no crackles. ABDOMEN: Soft. No guarding, no rigidity. Right upper quadrant tenderness noted. Bowel sounds are present. EXTREMITIES: No edema. NEUROLOGIC: Nonfocal. AVAILABLE DIAGNOSTIC DATA: White count of 3.3, hemoglobin 8, platelet count 120. Potassium of 2.3. BUN is less than 2 and creatinine 0.4, albumin is 3.2. CLINICAL IMPRESSION: 1. Alcohol withdrawal. 2. Alcohol abuse. 3. Right upper quadrant pain. 4. Colitis by CT scan of the abdomen and pelvis. 5. Hypokalemia. 6. Alcohol dependence. PLAN: 1. Replace potassium. 2. Colonoscopy. 3. Nutritional support after colonoscopy. 4. PT, OT. 5. General nursing care. 6. Follow lab. 7. Follow consult recommendation. 8. Care plan reviewed and discussed. JOB# [id number]
[2017-11-24] MEDS ORDERED: Metoclopramide 5 mg/mL 2mL Vial IVP SCH (23:00)
[2017-11-25] MEDS: Ampicillin Sodium/Sulbactam 3 GM in Sodium Chloride 0.9% 100 ML IV SCH ×3 (05:55→18:14)
[2017-11-25] MEDS: Morphine Sulfate 4 mg/mL 1mL Syr IVP PRN ×4 (05:57→22:58)
[2017-11-25] MEDS: D5-0.45NS 1,000 ML IV SCH ×2 (05:58→13:47)
[2017-11-25 06:17] LABS: % BASOPHILS 1.6 % (0.0-2.0); % EOSINOPHILS 3.7 % (0.0-5.0); % LYMPHOCYTES 55.5 % (20.0-50.0); % MONOCYTES 10.6 % (2.0-10.0); % NEUTROPHILS 28.6 % (40.0-80.0); ALB/GLOB RATIO 1.5 (1.0-1.8); ALBUMIN 3.7 gm/dL (3.7-5.3); ALKALINE PHOSPHATASE 79 U/L (34-104); ANION GAP 11.2 (7.0-16.0); BASOPHILE ABSOLUTE 0.1 Th/cumm (0-0.2); BILIRUBIN,TOTAL 0.7 mg/dL (0.3-1.0); CARBON DIOXIDE 27.7 mEq/L (21.0-31.0); CHLORIDE 100 mEq/L (98-107); CREATININE - SERUM 0.4 mg/dL (0.6-1.2); EOSINOPHILE ABSOLUTE 0.1 Th/cmm (0.1-0.4); GFR AFRICAN-AMERICAN > 60.0 ml/min (>90); GFR NON AFRICAN-AMERICAN > 60.0 ml/min; GLUCOSE 84 mg/dL (70-105); HEMATOCRIT 27.3 % (41.0-60); HEMOGLOBIN 9.2 gm/dL (12-16); LYMPHOCYTE ABSOLUTE 1.8 Th/cmm (1.5-3.0); MAGNESIUM 1.7 mg/dL (1.9-2.7); MEAN CELL VOLUME 100.3 fl (81-100); MEAN CORPUSCULAR HEMOGLOBIN 33.7 pg (27.0-31.0); MEAN CORPUSCULAR HGB CONC 33.6 pg (28.0-36.0); MEAN PLATELET VOLUME 7.3 fl; MONOCYTE ABSOLUTE 0.4 Th/cmm (0.3-1.0); PLATELET COUNT 153 Th/cmm (150-400); RED BLOOD COUNT 2.73 Mil/cmm (3.80-5.10); RED CELL DISTRIBUTION WIDTH 16.6 % (11.5-20.0); SGOT 63 U/L (13-39); SGPT/ALT 28 U/L (7-52); SODIUM SERUM 136 mEq/L (136-145); TOTAL PROTEIN,SERUM 6.2 gm/dL (6.0-8.3)
[2017-11-25 06:20] LABS: WHITE BLOOD COUNT 3.4 Th/cmm (4.8-10.8)
[2017-11-25 06:23] LABS: BUN - UREA NITROGEN < 2 mg/dL (7-25); POTASSIUM SERUM 2.9 mEq/L (3.5-5.1)
[2017-11-25] MEDS ORDERED: Potassium Chloride 40 MEQ, Lidocaine 1% 20mL Vial 25 MG in Sodium Chloride 0.9% 250 ML IV ONE (08:30)
[2017-11-25] MEDS: KCL 20mEq/100mL Premix 20 MEQ/100 ML PIGGYBACK IV SCH ×2 (09:00→11:35)
[2017-11-25] MEDS: Pantoprazole 40 mg EC Tab PO SCH (09:04)
[2017-11-25] MEDS: Multivitamin w/ Minerals Tab PO SCH (09:20)
[2017-11-25] MEDS ORDERED: Propofol 10 mg/mL 20mL Vial **SURGERY USE ONLY IV ONE (12:10)
[2017-11-25] MEDS ORDERED: fentaNYL Citrate 100 mcg/2mL Vial IVP PRN (13:12)
--- NOTE | 2017-11-25 16:01 | Operative Report ---
DATE OF SURGERY: 11/25/2017 INPATIENT GASTROINTESTINAL PROCEDURE PROCEDURE: Colonoscopy with biopsy. REFERRING PHYSICIAN: Dr. Bunn. REASON FOR PROCEDURE: Colitis, diarrhea. CONSENT: Risks, benefits, alternatives, nature, indication, possible outcomes were discussed. Mentioned bleeding, infection, perforation, , disability, cardiopulmonary distress and arrest, missed lesion and cancers, need for surgery. The patient expressed understanding and provided informed consent. PREOPERATIVE DIAGNOSES: Diarrhea and colitis. POSTOPERATIVE DIAGNOSES: Normal colon and internal hemorrhoids. MEDICATIONS: Provided by anesthesiologist MAC. DESCRIPTION OF PROCEDURE: The patient was placed on left side. Rectal exam was performed and was normal. Pediatric colonoscope was advanced from anus to cecum confirmed by appendiceal orifice and ileocecal valve. Scope slowly withdrawn examining the mucosa along the way. Random biopsies were taken once in the rectum, retroflexion was performed, scope was straightened and removed along with air. COMPLICATIONS: None. FINDINGS: 1. Normal terminal ileum. 2. Normal colonic mucosa. Random biopsies were taken. 3. Small internal hemorrhoids. RECOMMENDATIONS: 1. Follow up on biopsy. 2. High fiber diet. Thank you for allowing me to participate. Please call me if any questions. JOB# [id number]
--- NOTE | 2017-11-25 18:23 | Progress Notes ---
DATE: 11/25/2017 PATIENT IDENTIFICATION: A 42-year-old female. SUBJECTIVE: The patient was seen and examined. The patient is lying in the bed. The patient is feeling better. The patient's potassium has improved from 2.3-2.9. Her magnesium has also revealed 1.7 with AST and ALT of 63 and 28. Hepatitis panel was unremarkable. The patient is scheduled to have a colonoscopy today as well. CT scan were done, which was unremarkable for any significant pathology. A rib x-ray was unremarkable. The patient is feeling better, though required on and off IV Ativan. PHYSICAL EXAMINATION: VITAL SIGNS: Temperature 98, pulse is 84, respiratory rate 17, blood pressure 100/56. HEENT: No facial asymmetry. NECK: Supple, no JVD. HEART: Regular. CHEST: Lung equal in expansion. LUNGS: No wheezing, no crackles. ABDOMEN: Soft. No guarding, no rigidity. Bowel sounds are present. No palpable mass. EXTREMITIES: No edema. CLINICAL IMPRESSION: 1. Colitis by CT scan of the abdomen and pelvis. 2. Hypokalemia, hypomagnesemia secondary to chronic alcoholism. 3. Alcohol dependence. 4. Mild alcohol withdrawal, improved with Ativan. 5. Right upper quadrant pain, probably secondary to fall. PLAN: Replace potassium and replace magnesium. Colonoscopy as planned. The patient to be discharged plan to home once colonoscopy findings. There was definite diagnosis for her abdominal pain. The patient will be advanced on her p.o. diet as well along with multivitamin, folic acid and thiamine. The patient will be considered discharged home. [facility]# [id number]
[2017-11-26] MEDS: Ampicillin Sodium/Sulbactam 3 GM in Sodium Chloride 0.9% 100 ML IV SCH ×2 (06:13)
[2017-11-26] MEDS: D5-0.45NS 1,000 ML IV SCH (06:25)
--- NOTE | 2017-11-26 07:39 | GI Progress Note ---
Subjective - Review of Systems Subjective: NO EVENTS Objective - Results Result Diagrams: 11/25/17 05:36 11/25/17 05:36 Recent Labs: Laboratory Last Values WBC 3.4 Th/cmm (4.8-10.8) L 11/25/17 05:36 RBC 2.73 Mil/cmm (3.80-5.10) L 11/25/17 05:36 Hgb 9.2 gm/dL (12-16) L 11/25/17 05:36 Hct 27.3 % (41.0-60) L 11/25/17 05:36 MCV 100.3 fl (81-100) H 11/25/17 05:36 MCH 33.7 pg (27.0-31.0) H 11/25/17 05:36 MCHC Differential 33.6 pg (28.0-36.0) 11/25/17 05:36 RDW 16.6 % (11.5-20.0) 11/25/17 05:36 Plt Count 153 Th/cmm (150-400) 11/25/17 05:36 MPV 7.3 fl 11/25/17 05:36 Neutrophils % 28.6 % (40.0-80.0) L 11/25/17 05:36 Band Neutrophils % 4 % (0-10) 11/21/17 12:55 Lymphocytes % 55.5 % (20.0-50.0) H 11/25/17 05:36 Monocytes % 10.6 % (2.0-10.0) H 11/25/17 05:36 Eosinophils % 3.7 % (0.0-5.0) 11/25/17 05:36 Basophils % 1.6 % (0.0-2.0) 11/25/17 05:36 Neutrophils (Manual) 83 % (40-80) H 11/21/17 12:55 Lymphocytes 10 % (20-50) L 11/21/17 12:55 Monocytes 3 % (2-10) 11/21/17 12:55 PT 9.3 SECONDS (9.5-11.5) L 11/24/17 05:01 INR 0.90 (0.5-1.4) 11/24/17 05:01 PTT (Actin FS) 28.3 SECONDS (26.0-38.0) 11/21/17 12:55 Sodium 136 mEq/L (136-145) 11/25/17 05:36 Potassium 2.9 mEq/L (3.5-5.1) L* 11/25/17 05:36 Chloride 100 mEq/L (98-107) 11/25/17 05:36 Carbon Dioxide 27.7 mEq/L (21.0-31.0) 11/25/17 05:36 Anion Gap 11.2 (7.0-16.0) 11/25/17 05:36 BUN < 2 mg/dL (7-25) L 11/25/17 05:36 Creatinine 0.4 mg/dL (0.6-1.2) L 11/25/17 05:36 Est GFR ( Amer) > 60.0 ml/min (>90) 11/25/17 05:36 Est GFR (Non-Af Amer) > 60.0 ml/min 11/25/17 05:36 BUN/Creatinine Ratio 5.0 11/25/17 05:36 Glucose 84 mg/dL (70-105) 11/25/17 05:36 Whole Bld Lactic Acid 1.68 mmol/L (0.60-1.99) 11/21/17 15:00 Calcium 9.0 mg/dL (8.6-10.3) 11/25/17 05:36 Magnesium 1.7 mg/dL (1.9-2.7) L 11/25/17 05:36 Total Bilirubin 0.7 mg/dL (0.3-1.0) 11/25/17 05:36 AST 63 U/L (13-39) H 11/25/17 05:36 ALT 28 U/L (7-52) 11/25/17 05:36 Alkaline Phosphatase 79 U/L (34-104) 11/25/17 05:36 Troponin I < 0.01 ng/mL (0.01-0.05) L 11/21/17 12:55 B-Natriuretic Peptide 54.2 pg/mL (5.0-100.0) 11/21/17 12:55 Total Protein 6.2 gm/dL (6.0-8.3) 11/25/17 05:36 Albumin 3.7 gm/dL (3.7-5.3) 11/25/17 05:36 Globulin 2.5 gm/dL 11/25/17 05:36 Albumin/Globulin Ratio 1.5 (1.0-1.8) 11/25/17 05:36 Lipase 197 U/L (11-82) H 11/21/17 12:55 Urine Source RANDOM 11/21/17 13:00 Urine Color YELLOW 11/21/17 13:00 Urine Clarity HAZY (CLEAR) 11/21/17 13:00 Urine pH 5.5 (4.6 - 8.0) 11/21/17 13:00 Ur Specific [place] >= 1.030 (1.005-1.030) 11/21/17 13:00 Urine Protein 100 mg/dL (NEGATIVE) H 11/21/17 13:00 Urine Glucose (UA) NEGATIVE mg/dL (NEGATIVE) 11/21/17 13:00 Urine Ketones >=80 mg/dL (NEGATIVE) H 11/21/17 13:00 Urine Blood SMALL (NEGATIVE) H 11/21/17 13:00 Urine Nitrate NEGATIVE (NEGATIVE) 11/21/17 13:00 Urine Bilirubin NEGATIVE (NEGATIVE) 11/21/17 13:00 Urine Urobilinogen 0.2 E.U./dL (0.2 - 1.0) 11/21/17 13:00 Ur Leukocyte Esterase NEGATIVE (NEGATIVE) 11/21/17 13:00 Urine RBC 5-10 /hpf (0-5) H 11/21/17 13:00 Urine WBC 2-5 /hpf (0-5) 11/21/17 13:00 Ur Epithelial Cells MODERATE /lpf (FEW) 11/21/17 13:00 Urine Bacteria 1+ /hpf (NONE SEEN) H 11/21/17 13:00 Coarse Granular Casts 2-5 /lpf (NONE SEEN) H 11/21/17 13:00 Urine Test NEGATIVE 11/21/17 12:57 Urine Opiates Screen POSITIVE (NEGATIVE) H 11/22/17 09:00 Urine Methadone Screen NEGATIVE (NEGATIVE) 11/22/17 09:00 Ur Barbiturates Screen NEGATIVE (NEGATIVE) 11/22/17 09:00 Ur Tricyclics Screen NEGATIVE (NEGATIVE) 11/22/17 09:00 Ur Phencyclidine Scrn NEGATIVE (NEGATIVE) 11/22/17 09:00 Amphetamines Screen NEGATIVE (NEGATIVE) 11/22/17 09:00 U Methamphetamines Scrn NEGATIVE (NEGATIVE) 11/22/17 09:00 U Benzodiazepines Scrn NEGATIVE (NEGATIVE) 11/22/17 09:00 U Cocaine Metab Screen NEGATIVE (NEGATIVE) 11/22/17 09:00 U Cannabinoids Screen NEGATIVE (NEGATIVE) 11/22/17 09:00 Hepatitis A IgM Ab N 11/23/17 04:41 Hep Bs Antigen N 11/23/17 04:41 Hep B Core IgM Ab N 11/23/17 04:41 Hepatitis C Antibody <0.1 11/23/17 04:41 - Physical Exam Vitals and I&O: Vital Signs Temp 97.6 F 11/26/17 04:00 Pulse 75 11/26/17 04:00 Resp 18 11/26/17 04:00 BP 108/70 11/26/17 04:00 Pulse Ox 100 11/26/17 04:00 Intake & Output 11/25/17 11/26/17 11/26/17 18:59 06:59 18:59 Intake Total 981.667 200 Balance 981.667 200 Weight (lbs) 61.689 kg Intake: Intake, IV Amount 981.667 200 Ampicillin Sodium/ 100 200 Sulbactam 3 gm In Sodium Chloride 0.9% 100 ml @ 100 mls/hr IV Q6HR [facility] Rx #:[id number] D5-0.45NS 1,000 ml @ 100 781.667 0 mls/hr IV .Q10H [facility] Rx#: [id number] KCL 20mEq/100mL Premix 20 100 meq In 100 ml @ 50 mls/ hr IV Q2H [facility] Rx#: [id number] Other: Stool Characteristics Liquid Weight Source Bedscale Active Medications: Current Medications Cholestyramine Resin (Questran) 4 gm PO DAILY [facility] Stop: 01/25/18 08:59 Folic Acid (Folate) 1 mg PO DAILY [facility] Stop: 01/25/18 08:59 Dextrose/Sodium Chloride (D5-0.45ns) 1,000 mls @ 100 mls/hr IV .Q10H [facility] Stop: 01/20/18 15:44 Last Admin: 11/26/17 06:25 Dose: 100 mls/hr Ampicillin Sodium/Sulbactam (Sodium 3 gm/ Sodium Chloride) 100 mls @ 100 mls/ hr IV Q6HR [facility] Stop: 01/20/18 17:59 Last Admin: 11/26/17 06:13 Dose: 100 mls/hr Lorazepam (Ativan) 1 mg IVP Q4HR PRN; Protocol PRN Reason: Alcohol Withdrawal Stop: 01/23/18 09:38 Last Admin: 11/26/17 03:27 Dose: 1 mg Morphine Sulfate (Morphine) 1 mg IVP Q4HR PRN PRN Reason: Abdominal Pain Stop: 01/20/18 15:41 Morphine Sulfate (Morphine) 2 mg IVP Q4HR PRN PRN Reason: Abdominal Pain Stop: 01/20/18 15:46 Last Admin: 11/25/17 22:58 Dose: 2 mg Pantoprazole Sodium (Protonix) 40 mg PO DAILY [facility] Stop: 01/21/18 08:59 Last Admin: 11/25/17 09:04 Dose: Not Given Thiamine HCl (Vitamin B1) 100 mg PO DAILY [facility] Stop: 01/24/18 09:14 Last Admin: 11/25/17 09:20 Dose: Not Given General: Alert, No acute distress HEENT: Atraumatic Neck: Supple Cardiovascular: Regular rate Lungs: Clear to auscultation Abdomen: Bowel sounds, Soft, Tender (MILD R SIDED/RLQ) Assessment/Plan - Assessment Assessment: 42 YO FEMALE COLO SHOWED INT HEMORRHOIDS H/O [place] 1.CONT SUPP CARE 2.CHOLESTYRAMINE 3.AWAIT BX
[2017-11-26] MEDS: Pantoprazole 40 mg EC Tab PO SCH (09:23)
[2017-11-26] MEDS: Multivitamin w/ Minerals Tab PO SCH (09:23)
[2017-11-26 10:38] LABS: ANION GAP 10.7 (7.0-16.0); CALCIUM SERUM 8.8 mg/dL (8.6-10.3); CARBON DIOXIDE 30.1 mEq/L (21.0-31.0); CHLORIDE 97 mEq/L (98-107); CREATININE - SERUM 0.4 mg/dL (0.6-1.2); GFR AFRICAN-AMERICAN > 60.0 ml/min (>90); GFR NON AFRICAN-AMERICAN > 60.0 ml/min; GLUCOSE 86 mg/dL (70-105); MAGNESIUM 1.5 mg/dL (1.9-2.7); SODIUM SERUM 135 mEq/L (136-145)
[2017-11-26 10:40] LABS: BUN - UREA NITROGEN < 2 mg/dL (7-25); POTASSIUM SERUM 2.8 mEq/L (3.5-5.1)
[2017-11-26] MEDS ORDERED: Potassium Chloride 20 mEq ER Tab PO ONE (12:31)
[2017-11-26] MEDS ORDERED: KCL 20mEq/100mL Premix 20 MEQ/100 ML PIGGYBACK IV ONE (12:31)
[2017-11-26] MEDS ORDERED: Mag Sulfate 2gm/50mL Premix 2 GM/50 ML BAG IV ONE (12:33)
--- NOTE | 2017-11-26 14:42 | Pathology Report ---
[id number] Collection date: 11/25/2017 Surgeon: Dr. Kirill Milton Specimen Description: Random colon biopsy Gross Description: Received in formalin are two arellano soft tissue fragments ranging from 0.1 to 0.2 cm in greatest dimension. Totally submitted in one cassette. Microscopic Description: The histologic sections show colon mucosa with a focal area of mild chronic inflammation consisting of an aggregate of lymphocytes. There is no evidence for increased intraepithelial inflammatory cells, and the thickness of subepithelial collagen layer is also within normal limits. Diagnosis: Mild nonspecific chronic inflammation, random colon biopsy. Comment: There is no evidence for microscopic colitis. [facility]# [id number] MTDTrish
[2017-11-26 16:19] LABS: HEP A AB IGM Negative (Negative); HEP B CORE IGM Negative (Negative); HEP B SURFACE AG QL Negative (Negative); HEP C ANTIBODY <0.1 s/co ratio (0.0-0.9)
--- NOTE | 2017-11-26 22:50 | Progress Notes ---
DATE: 11/26/2017 SUBJECTIVE: The patient seen and examined. The patient is lying in the bed, status post colonoscopy, findings noted. The patient currently has no new complaints. PHYSICAL EXAMINATION: VITAL SIGNS: Temperature 98, pulse 64, respiratory rate 18, blood pressure 130/80. HEENT: No facial asymmetry. NECK: Supple, no JVD. HEART: Regular, no murmur. CHEST: Lung equal in expansion. LUNGS: No wheezing, no crackles. ABDOMEN: Soft. No guarding, rebound. EXTREMITIES: No edema. NEUROLOGIC: Nonfocal. LABORATORY DATA: No labs for my review. CLINICAL IMPRESSION: 1. Hypokalemia, hypomagnesemia. Lab is currently pending. 2. Right upper quadrant pain, negative workup. Suspect probably secondary to musculoskeletal etiology. 3. Alcohol dependence. 4. Degenerative joint disease. 5. Internal hemorrhoids by colonoscopy. 6. History of fall at home after intoxication. Suspect pain of her chest and right upper quadrant, probably from her fall. PLAN: 1. Recheck potassium and magnesium. 2. Discharge plan the patient to home. 3. Care plan reviewed and discussed with staff. JOB# [id number]
== END 2017-11-26 17:24 | disposition home or self-care (01) | DRG 394 ==
LOC: ER 12:13 → MSI 15:45 → ER 17:04
PROVIDERS: ADMIT Internal Medicine; ATTEND Internal Medicine
PROC: 0DBE8ZX Excision of Large Intestine, Via Natural or Artificial Opening Endoscopic, Diagnostic (ICD-10-PCS; principal; 2017-11-25)
DX: K64.8 Other hemorrhoids (principal); F10.239 Alcohol dependence with withdrawal, unspecified; E87.1 Hypo-osmolality and hyponatremia; R10.11 Right upper quadrant pain; K70.0 Alcoholic fatty liver; Z87.891 Personal history of nicotine dependence; D64.9 Anemia, unspecified; E87.6 Hypokalemia; D69.59 Other secondary thrombocytopenia; K70.9 Alcoholic liver disease, unspecified; E83.42 Hypomagnesemia; Z91.81 History of falling
CPT/HCPCS: 36415-UA; 71101-TC-LT; 71101-TC-RT; 72125-TC; 80048-TC; 80053-TC; 80074-90; 80307; 81001-TC; 81025-TC; 83605; 83690-TC; 83735-TC; 83880-TC; 84132-TC; 84484-TC; 85007-TC; 85025-TC; 85027-TC; 85610-TC; 87230-TC; 90799; 93005; 94760; J0295; J0696; J2001; J2060; J2704; J2765; J3475; J3480; J7030; J7040; Z7506; Z7610